=== PATIENT | female | born 1955 | race Caucasian/White ===

== ENCOUNTER → 2016-03-31 | Outpatient (CLI) | payer BC ==
--- NOTE | 2016-03-31 18:00 | MA ---
Screening Digital Mammogram With Tomosynthesis Clinical Indications: Routine screening. Sister with breast cancer at age 40s and 60s. Technique: Standard digital cephalocaudal and tomosynthesis mediolateral oblique projections are obt ained. The digital images were processed by the [employer] computer aided detection system. An additional digital oblique lateral view was performed of the left breast. Comparison: March 2015 and 2014, February 2013 and 2011 Breast density: B; There are scattered fibroglandular densities. Findings: CAD was reviewed. No suspicious findings are identified. Impression: Negative mammogram. BI-RADS 1. Recommendation: Routine screening is recommended in one year. [facility] will send a result letter to the patient. Negative mammography should not preclude additional workup of a clinically suspicious finding. The patient's information is entered into a reminder system with a target due date for her next mammo gram.
== END ==
LOC: FIMAGING 15:30
DX: Z12.31 Encounter for screening mammogram for malignant neoplasm of breast (principal); Z80.3 Family history of malignant neoplasm of breast
CPT/HCPCS: G0202

== ENCOUNTER → 2017-04-05 | Outpatient (CLI) | payer BC | LOC: FIMAGING 15:54 | PROVIDERS: ATTEND Internal Medicine | DX: Z12.31 Encounter for screening mammogram for malignant neoplasm of breast (principal); Z80.3 Family history of malignant neoplasm of breast ==

== ENCOUNTER 2017-07-08 15:17 | Emergency (ER) | payer BC, OTHER ==
--- NOTE | 2017-07-08 15:23 | EDPHY ---
H & P Time Seen by Provider: 07/08/17 15:23 Medical Decision Making ED Course/Re-evaluation: CHIEF COMPLAINT: HISTORY OF PRESENT ILLNESS: must have 4 elements: Location, Quality, Severity , Duration, Timing, Context, Modifying Factors, Associated Signs and Symptoms REVIEW OF SYSTEMS: A 10 point review of systems was performed and is negative with the exception of the elements mentioned in the history of present illness. PHYSICAL EXAM: HR, BP, O2 Sat, RR. Temp noted General Appearance: Alert, well hydrated, appropriate, and non-toxic appearing. Head: Atraumatic without scalp tenderness or obvious injury Eyes: Pupils equal, round, reactive to light and accommodation, EOMI, no trauma , no injection. Ears: Clear bilaterally, no perforation, normal landmarks Nose: Atraumatic, no rhinorrhea, clear. Throat: There is no erythema or exudates, no lesions, normal tonsils, mucus membranes moist. Neck: Supple, 2+ carotid upstroke, nontender, no lymphadenopathy. Respiratory: No retractions, no distress, no wheezes, and no accessory muscle use. Lungs are clear to auscultation bilaterally. Cardiovascular: Regular rate and rhythm, no murmurs, rubs, or gallops. Bilateral carotid, radial, dorsalis pedis, and posterior tibial pulses intact. Good capillary refill all extremities. Gastrointestinal: Abdomen is soft, nontender, non-distended, no masses, no rebound, no guarding, no peritoneal signs. Musculoskeletal: Normal active ROM of all extremities, atraumatic. Neurological: Alert, appropriate, and interactive. The patient has normal DTRs and non-focal cranial nerves, motor, sensory, and cerebellar exam. Skin: No rashes, good turgor, no nodules on palpation. Past medical history: Past surgical history: Family history: Social history: DIAGNOSTICS/PROCEDURES/CRITICAL CARE TIME: DIFFERENTIAL DIAGNOSIS: MEDICAL DECISION MAKING: Departure - Departure Referrals: Patient,NotPresent [Primary Care Provider] - As per Instructions
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
[2017-07-08] MEDS ORDERED: OXYCODONE/APAP 5/325 TAB PO ONE ×2 (16:47→18:22)
[2017-07-08 18:35] VITALS: BP 133/77
== END 2017-07-08 18:32 | disposition home or self-care (01) ==
LOC: EDUNIT#
PROC: 0HQLXZZ Repair Left Lower Leg Skin, External Approach (ICD-10-PCS; principal; 2017-07-08)
DX: S82.142A Displaced bicondylar fracture of left tibia, initial encounter for closed fracture (principal); S82.002A Unspecified fracture of left patella, initial encounter for closed fracture; V13.4XXA Pedal cycle driver injured in collision with car, pick-up truck or van in traffic accident, initial encounter; Y92.410 Unspecified street and highway as the place of occurrence of the external cause; Y99.8 Other external cause status; Y93.55 Activity, bike riding
CPT/HCPCS: L1830

== ENCOUNTER → 2018-04-12 | Outpatient (CLI) | payer BC | LOC: FIMAGING 10:06 | PROVIDERS: ATTEND Internal Medicine | DX: Z12.31 Encounter for screening mammogram for malignant neoplasm of breast (principal); Z80.3 Family history of malignant neoplasm of breast ==

== ENCOUNTER 2018-08-05 12:39 | Emergency (ER) | payer BC ==
--- NOTE | 2018-08-05 14:30 | EDPHY ---
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 Patient states this was a mechanical fall. She fell forward striking her face. She landed on her left wrist and right hand. She now has moderate left wrist pain. This is worse with movement. She has mild left hand pain. She was able to finish the rest of race. However, she has continued have pain in his here for evaluation. Patient denies lightheadedness or dizziness. No chest pain or shortness of breath. Patient does not have a headache. She did not lose consciousness. No neck or back pain. REVIEW OF SYSTEMS: 10 systems were reveiwed and are negative with the exception of the elements mentioned in the history of present illness. Past Medical/Surgical History: Includes hypothyroidism, diastolic dysfunction Smoking Status: Never smoked Physical Exam: Vitals noted GENERAL: Well-appearing, in no acute distress, alert. HEENT: Eyes normal to inspection, normal pharynx, no signs of dehydration. The patient has an abrasion over her nose. She also has an abrasion over her upper lip. There is no bony tenderness to palpation. NECK: Normal, supple. No spinal tenderness. Nexus negative. RESPIRATORY: Clear to auscultation bilaterally, no rales, rhonchi or wheezing. CVS: Regular rate and rhythm, no rubs, murmurs, or gallops. ABDOMEN: Soft, nontender, nondistended, no organomegaly. BACK: Normal to inspection, no CVA tenderness. SKIN: Normal color, no rash, warm, dry. No pallor. EXTREMITIES: Patient has swelling and tenderness at her left wrist. There is no gross deformity. No laceration. The patient also has an abrasion over her right hand with mild tenderness palpation. Neurovascularly intact in all extremities. NEURO/PSYCH: Alert and oriented, normal mood and affect, normal motor sensory exam. Constitutional: Initial Vital Signs Temperature (C) 36.9 C 08/05/18 12:59 Heart Rate 87 08/05/18 12:59 Respiratory Rate 18 08/05/18 12:59 Blood Pressure 131/71 H 08/05/18 12:59 O2 Sat (%) 94 08/05/18 12:59 O2 Delivery Mode Room Air Allergies/Adverse Reactions: Sulfa (Sulfonamide Antibiotics) Allergy (Verified 08/05/18 12:59) Home Medications: Medication Instructions Recorded Levothyroxine 07/08/17 oxyCODONE/APAP 5/325 [Percocet 1 - 2 tab PO Q4H PRN #20 tab 07/08/17 5/325 (*)] Hydrocodone/APAP 5/325 [Colden 1 - 2 tab PO Q4 #7 tab 08/05/18 5/325 (RX)] Medical Decision Making - Diagnostics Imaging Results: Imaging Impressions Hand X-Ray 08/05/18 13:11 Impression: No evidence for acute osseous abnormality right hand. Mild underlying degenerative change in the interphalangeal joints and first carpometacarpal joint. Wrist X-Ray 08/05/18 13:11 Impression: Nondisplaced transverse fracture distal radial metaphysis. Possible avulsion fracture dorsal triquetrum. ED Course/Re-evaluation: In the emergency department discussed possible etiologies with the patient. Answered all her questions. Hand x-ray: Please refer the dictated report. Negative Left wrist x-ray: Please refer the dictated report. Patient has a distal radius fracture. There is also a possible avulsion fracture of the triquetrum. I discussed the results with the patient. I answered all her questions. The patient was placed in a sugar-tong splint. This extended up past the 1st phalanx. Neurovascular intact distally prior to discharge. Patient was given follow-up instructions. She will follow up with Orthopedics. She is given warnings prior to leaving. Patient's wounds were cleaned and dressed in the emergency department. Differential Diagnosis: My differential includes but is not limited to fracture, dislocation, contusion , sprain, abrasion Departure - Departure Disposition: Home, Routine, Self-Care Clinical Impression: Wrist fracture Qualifiers: Encounter type: initial encounter Fracture type: closed Laterality: left Qualified Code(s): S62.102A - Fracture of unspecified carpal bone, left wrist, initial encounter for closed fracture Hand fracture, left Qualifiers: Encounter type: initial encounter Fracture type: closed Qualified Code(s): S62.92XA - Unspecified fracture of left wrist and hand, initial encounter for closed fracture Hand contusion Qualifiers: Encounter type: initial encounter Laterality: right Qualified Code(s): S60.221A - Contusion of right hand, initial encounter Condition: Good Instructions: Wrist Fracture in Adults (ED) Additional Instructions: Return with increasing pain, numbness or any other concerns. You need close follow-up with Orthopedics. Call tomorrow morning to make the next available appointment. Referrals: Stacy Garcia MD [Primary Care Provider] - 5-7 days, call for appt. Shane Patino MD [Medical Doctor] - 2-3 days without fail Prescriptions: Hydrocodone/APAP 5/325 [Colden 5/325 (RX)] 1 - 2 tab PO Q4 #7 tab
[2018-08-05 15:11] VITALS: BP 114/64
== END 2018-08-05 15:20 | disposition home or self-care (01) ==
PROC: 2W3DX1Z Immobilization of Left Lower Arm using Splint (ICD-10-PCS; principal; 2018-08-05)
DX: S52.592A Other fractures of lower end of left radius, initial encounter for closed fracture (principal); S60.511A Abrasion of right hand, initial encounter; E03.9 Hypothyroidism, unspecified; Z79.899 Other long term (current) drug therapy; W18.30XA Fall on same level, unspecified, initial encounter; Y93.02 Activity, running
CPT/HCPCS: A4565